=== PATIENT | male | born 2000 ===

== ENCOUNTER 2021-01-24 22:34 | Emergency (ER) | payer SELFPAY ==
[~2021-01-24] VITALS: Ht 185.4 cm; Wt 67.3 kg
[2021-01-24 22:35] VITALS: BP 143/81
== END 2021-01-24 23:45 | disposition left against medical advice (07) ==
LOC: M ED 22:34
DX: Z53.21 Procedure and treatment not carried out due to patient leaving prior to being seen by health care provider (principal)